=== PATIENT | female | born 1960 | race Caucasian/White ===

== ENCOUNTER → 2017-04-16 | Outpatient (CLI) | payer BC, OTHER | LOC: RAD 10:29 | DX: Z12.31 Encounter for screening mammogram for malignant neoplasm of breast (principal) ==

== ENCOUNTER → 2018-04-20 | Outpatient (CLI) | payer BC, OTHER | LOC: RAD 04-18 01:19 | DX: Z12.31 Encounter for screening mammogram for malignant neoplasm of breast (principal) ==